=== PATIENT | female | born 1965 | race Caucasian/White ===

== ENCOUNTER 2023-07-28 19:28 | Emergency (ER) | payer MEDICAID ==
[~2023-07-28] VITALS: Ht 172.7 cm; Wt 94.1 kg
[2023-07-28 20:39] LABS: BASOPHILS % (AUTO) 0.4 % (0-1); EOSINOPHILS # (AUTO) 0.2 X10'3 (0-0.9); EOSINOPHILS % (AUTO) 2.5 % (0-6); HEMATOCRIT 40.7 % (35.0-45.0); HEMOGLOBIN 13.4 g/dl (12.0-16.0); LYMPHOCYTES # (AUTO) 1.4 X10'3 (1.1-4.8); LYMPHOCYTES % (AUTO) 20.5 % (21-51); MEAN CORPUSCULAR HEMOGLOBIN 28.2 PG (27.0-31.0); MEAN CORPUSCULAR HGB CONC 32.9 g/dL (33.0-36.5); MEAN CORPUSCULAR VOLUME 85.7 FL (78-98); MEAN PLATELET VOLUME 6.5 FL (7.4-10.4); MONOCYTES # (AUTO) 0.6 X10'3 (0-0.9); MONOCYTES % (AUTO) 8.1 % (2-12); NEUTROPHILS # (AUTO) 4.8 X10'3 (1.8-7.7); NEUTROPHILS % (AUTO) 68.5 % (42-75); PLATELET COUNT 284 X10'3 (140-440); RED BLOOD COUNT 4.75 X10'6 (4.20-5.60); RED CELL DISTRIBUTION WIDTH 14.7 % (11.5-14.5)
[2023-07-28 20:51] LABS: ALBUMIN 3.4 G/DL (3.4-5.0); ANION GAP 7 (8-16); BLOOD UREA NITROGEN 25 MG/DL (7-18); BUN/CREATININE RATIO 22.5 (10.0-20.0); CHLORIDE 103 MMOL/L (99-107); CREATININE 1.11 MG/DL (0.40-0.90); GLUCOSE 134 MG/DL (70-104); POTASSIUM 4.3 MMOL/L (3.5-5.1); SODIUM 139 MMOL/L (135-145); eCRCL 57 ML/MIN; eGFR 51 ML/MIN
[2023-07-28] MEDS: acetaminophen 325mg tablet PO ONE (21:49)
[2023-07-28] MEDS: ibuprofen tablet 400 MG TABLET PO ONE (21:49)
[2023-07-28 21:51] VITALS: BP 156/90; PULSE 82; RESP 18; TEMP 98.1; O2SAT 100
[2023-07-28] MEDS ORDERED: CYCL-394 PO (21:55)
== END 2023-07-28 21:57 | disposition home or self-care (01) ==
LOC: ER 19:29
DX: S13.4XXA Sprain of ligaments of cervical spine, initial encounter (principal); S16.1XXA Strain of muscle, fascia and tendon at neck level, initial encounter; E11.9 Type 2 diabetes mellitus without complications; Z86.73 Personal history of transient ischemic attack (TIA), and cerebral infarction without residual deficits; W18.39XA Other fall on same level, initial encounter; Y93.89 Activity, other specified; Y92.89 Other specified places as the place of occurrence of the external cause; Y99.8 Other external cause status
CPT/HCPCS: 36415; 70450; 72125; 80048; 84484; 85025; 93005; 99284

== ENCOUNTER 2023-08-14 22:08 | Emergency (ER) | payer MEDICAID ==
[~2023-08-14] VITALS: Ht 170.2 cm; Wt 94.0 kg
[2023-08-14 23:31] VITALS: TEMP 98.8
[2023-08-15] MEDS: acetaminophen 325mg tablet PO ONE (00:58)
[2023-08-15 01:02] VITALS: BP 160/88; PULSE 87; RESP 18; O2SAT 97
== END 2023-08-15 01:04 | disposition home or self-care (01) ==
LOC: ER 22:08
DX: R51.9 Headache, unspecified (principal); M54.2 Cervicalgia; E11.9 Type 2 diabetes mellitus without complications; Z88.8 Allergy status to other drugs, medicaments and biological substances; W06.XXXA Fall from bed, initial encounter; Y93.89 Activity, other specified; Y92.89 Other specified places as the place of occurrence of the external cause; Y99.8 Other external cause status
CPT/HCPCS: 70450; 72125; 99284

== ENCOUNTER 2024-04-04 23:39 | Emergency (ER) | payer MEDICAID ==
[~2024-04-04] VITALS: Ht 172.7 cm; Wt 81.4 kg
[2024-04-04 23:42] VITALS: BP 198/109; PULSE 103; O2SAT 98
[2024-04-05 00:59] VITALS: RESP 16
[2024-04-05] MEDS: ketorolac trometh 15mg/ml vial 15 MG/ML ML IM ONE (00:59)
[2024-04-05] MEDS: diphenhydrAMINE 25mg capsule PO ONE (02:08)
[2024-04-05] MEDS ORDERED: HYDR-3965 PO (02:09)
[2024-04-05 02:14] VITALS: TEMP 98.2
== END 2024-04-05 02:16 | disposition home or self-care (01) ==
LOC: ER 23:40
DX: S16.1XXA Strain of muscle, fascia and tendon at neck level, initial encounter (principal); E11.9 Type 2 diabetes mellitus without complications; M25.562 Pain in left knee; Z88.8 Allergy status to other drugs, medicaments and biological substances; Z86.73 Personal history of transient ischemic attack (TIA), and cerebral infarction without residual deficits; W19.XXXA Unspecified fall, initial encounter; Y93.89 Activity, other specified; Y92.89 Other specified places as the place of occurrence of the external cause; Y99.8 Other external cause status
CPT/HCPCS: 72040; 96372; 99283; J1885; Q0163

== ENCOUNTER 2025-02-23 19:37 | Emergency (ER) | payer BC, MEDICAID ==
[~2025-02-23] VITALS: Ht 175.3 cm; Wt 105.7 kg
--- NOTE | 2025-02-23 20:22 | RADIOLOGY REPORT ---
CLINICAL INDICATION: Shoulder Pain TECHNIQUE: 4 radiographic views of the right shoulder were obtained. Comparison: None FINDINGS/IMPRESSION: There is no evidence of acute fracture or dislocation. The visualized joint space is well maintained. The alignment is anatomical. If symptoms persist, CT may be considered for further evaluation.
--- NOTE | 2025-02-23 22:54 | Physician Documentation ---
History of Present Illness ~ Chief Complaint: Mechanical Fall Stated Complaint: FALL/SHOULDER PAIN ON BLOOD THINNERS Time Seen by MD: 22:44 HPI 51-year-old female who presents with right shoulder pain after a fall a couple of days ago. She tells me that she had a stroke in the past and has poor vision. She states she tripped and fell a couple of days ago, landing directly on her right shoulder. Since that time she has had pain in the shoulder and limited mobility. She does report landing on her right hip as well but denies any significant pain other than some mild bruising there. Her primary concerns that she could have a broken bone in her shoulder. Is right-handed. She denies any head or neck injury. No other acute concerns. She has been using ibuprofen and ice without much relief Tetanus within 5 Years?: No Medication Reconciliation Allergies: Coded Allergies: atorvastatin (Verified Allergy, Intermediate, anxiety, 07/28/23) prednisone (Verified Allergy, Intermediate, anxiety, 07/28/23) Scheduled PRN Ibuprofen* (Motrin*), 800 MG PO Q8H PRN for pain Past Medical History Past Medical History: CVA/TIA/Stroke, Diabetes Review of Systems Musculoskeletal: Reports: pain, swelling Physical Exam Vital Signs: Temperature: 97.7, Heart Rate: 98, Respiratory Rate: 16, BP: 156/90, Pulse Oximetry: 98, Weight: 105.700 Physical Exam General: This is a pleasant and overall well-appearing middle-aged woman sitting calmly in a chair HEENT: Atraumatic, oropharynx is moist Heart: Regular rate and rhythm, normal-appearing peripheral perfusion Lungs: normal work of breathing, normal oxygen saturation on room air Extremities: Warm and well-perfused Right upper extremity: The patient has reproducible tenderness on palpation over the lateral shoulder and deltoid muscle. There was no significant bruising or abrasions. No focal bony point tenderness on palpation of the bones of the shoulder or elbow. Limited range of motion due to pain in the shoulder. Neuro: Alert and oriented, no weakness or sensation changes in the right hand Psychiatric: Calm and cooperative with exam Progress Results/Orders Results/Orders Orders - BRIDGET PAUL MD Shoulder, Complete (Min 2 Vws) (02/23/25 20:00) Completed Orders - BRIDGET PAUL MD Shoulder, Complete (Min 2 Vws) (02/23/25 20:00) Vital Signs 11/2/25 11/2/25 19:45 23:21 Temp 97.7 98.6 Pulse 98 90 Resp 16 18 B/P (MAP) 156/90 155/89 Pulse Ox 98 99 EKG/XRAY/CT/US/VASC/MRI Bone/Soft Tissue X-Ray (Ext.) : Additional Comment I personally interpreted the x-ray, and it shows: No fracture or dislocation, specifically no humerus fracture or clavicle fracture Medical Decision Making Additional information obtaine: N/A Findings na Differential Dx:Considerations: Include: Fracture(s), Contusion(s), Hematoma(s) Additional Comment Patient presents with right shoulder pain after a fall. Her exam seems most consistent with a muscle contusion. X-ray does not show a fracture or dislocation. She is reassured and given home care instructions. Departure Time of Disposition: 23:02 Disposition: 01 HOME / SELF CARE / HOMELESS Impression: Primary Impression: Contusion of shoulder, right Condition: Stable Discharge Instructions: Contusion Referrals: NO PRIMARY CARE PROVIDER (PCP) Prescriptions Ibuprofen* (Motrin*) 400 Mg Tablet 800 MG PO Q8H PRN for pain, #42 TAB 1 Refill Prov: BRIDGET PAUL MD 02/23/25 Education Educated: Patient Educated regarding: diagnosis, treatment, need for follow up Signature Scribe Signature: na Attestation: BRIDGET Ba MD Feb 23, 2025 22:54
[2025-02-23] MEDS ORDERED: IBUP-1984 PO (23:05)
[2025-02-23 23:21] VITALS: BP 155/89; PULSE 90; RESP 18; TEMP 98.6; O2SAT 99
== END 2025-02-23 23:22 | disposition home or self-care (01) ==
LOC: ER 19:38
DX: S40.011A Contusion of right shoulder, initial encounter (principal); E11.9 Type 2 diabetes mellitus without complications; Z79.01 Long term (current) use of anticoagulants; Z86.73 Personal history of transient ischemic attack (TIA), and cerebral infarction without residual deficits; Z88.8 Allergy status to other drugs, medicaments and biological substances; W01.0XXA Fall on same level from slipping, tripping and stumbling without subsequent striking against object, initial encounter; Y93.89 Activity, other specified; Y92.89 Other specified places as the place of occurrence of the external cause; Y99.8 Other external cause status
CPT/HCPCS: 73030; 99283